=== PATIENT | female | born 1970 | race Two or more races ===

== ENCOUNTER 2022-08-07 16:28 | Inpatient (IN) | payer OTHER ==
[~2022-08-07] VITALS: Ht 157.5 cm; Wt 86.9 kg
[2022-08-07 17:27] LABS: Basophils # (auto) 0.1 10 ^3/uL (0-0.2); Eosinophils # (auto) 0.1 10 ^3/uL (0-0.8); Hematocrit 14.8 % (36.0-46.0); Monocytes # (auto) 0.4 10 ^3/uL (0-1.3); Nucleated Red Blood Cells % 0.1 %; White Blood Cell 7.6 10^3/uL (4.4-10.8)
[2022-08-07 17:29] LABS: Basophils % (auto) 1.5 % (0.0-2.0); Eosinophils % (auto) 1.2 % (0.0-7.0); Lymphocytes % (auto) 26.1 % (10.0-50.0); Mean Corpuscular Hemoglobin 15.3 pg (28.0-32.0); Mean Corpuscular Hgb Conc. 26.7 g/dL (32.0-36.0); Mean Corpuscular Volume 57.4 fL (80.0-100.0); Monocytes % (auto) 5.3 % (0.0-12.0); Neutrophils % (auto) 65.9 % (37.0-80.0); Red Blood Cells 2.58 10^6/uL (4.0-5.20)
[2022-08-07 17:40] LABS: Albumin 3.4 g/dL (3.4-5.0); Calcium 8.9 mg/dL (8.5-10.1); Potassium 4.1 mmol/L (3.5-5.1)
[2022-08-07 17:43] LABS: BUN/Creatinine Ratio 24.6 (10.0-20.0); Bilirubin, Total 0.4 mg/dL (0.2-1.0); Total Protein 6.6 g/dL (6.4-8.2)
[2022-08-07 18:15] LABS: Red Cell Distribution Width 22.1 % (11.8-14.3)
[2022-08-07 20:13] VITALS: BP 142/70
[2022-08-07 20:30] VITALS: BP 127/68
[2022-08-07] MEDS ORDERED: ONDANSETRON HCL 4 MG/2 ML VIAL IV PRN (21:15)
[2022-08-07] MEDS ORDERED: NITROGLYCERIN 0.4 MG SL TAB SL PRN (21:15)
[2022-08-07] MEDS ORDERED: MORPHINE SULFATE INJ 2 MG/ml SYRG IV PRN ×2 (21:15)
[2022-08-07 21:42] LABS: Cholesterol 122 mg/dL (< 200)
[2022-08-07 21:44] LABS: % Iron Saturation 1.5 % (15-50)
[2022-08-07 21:45] LABS: HDL Cholesterol 42 mg/dL (40-59); LDL Cholesterol 62 mg/dL (< 100); Triglycerides 150 mg/dL (< 150)
[2022-08-07] MEDS ORDERED: PANTOPRAZOLE 40 MG/10 ML VIAL INJ IV ONE (21:45)
[2022-08-07 21:52] LABS: Ferritin 2.1 ng/mL (10-322); Folate (Folic Acid) 16.8 ng/mL (5.38-24)
[2022-08-07 23:00] VITALS: BP 115/67
[2022-08-07 23:50] VITALS: BP 115/56
[2022-08-07 23:57] LABS: Urine Bacteria NONE SEEN /hpf (None Seen); Urine Blood 3+ /uL (Negative); Urine Specific Gravity 1.014 (1.001-1.035); Urine WBC 4 /hpf (0 - 5)
[2022-08-08] VITALS (33 sets, daily range): BP systolic 99–131; BP diastolic 43–72
[2022-08-08] MEDS: SODIUM CHLORIDE 0.9% 1,000 ML IV SCH ×2 (02:30→18:14)
[2022-08-08 06:20] LABS: Basophils # (auto) 0.1 10 ^3/uL (0-0.2); Eosinophils # (auto) 0.2 10 ^3/uL (0-0.8); Eosinophils % (auto) 2.9 % (0.0-7.0); Hematocrit 22.1 % (36.0-46.0); Lymphocytes % (auto) 28.3 % (10.0-50.0); Mean Corpuscular Hemoglobin 21.7 pg (28.0-32.0); Mean Corpuscular Hgb Conc. 31.5 g/dL (32.0-36.0); Mean Corpuscular Volume 68.9 fL (80.0-100.0); Monocytes # (auto) 0.6 10 ^3/uL (0-1.3); Monocytes % (auto) 8.2 % (0.0-12.0); Neutrophils # (auto) 4.2 10 ^3/uL (1.6-8.6); Neutrophils % (auto) 59.6 % (37.0-80.0); Nucleated Red Blood Cells % 0.1 %
[2022-08-08 06:23] LABS: Red Cell Distribution Width 30.9 % (11.8-14.3)
[2022-08-08 06:24] LABS: Hemoglobin 6.9 g/dL (12.2-16.2)
[2022-08-08 06:35] LABS: Calcium 8.1 mg/dL (8.5-10.1)
[2022-08-08 06:40] LABS: Albumin 3.1 g/dL (3.4-5.0); BUN/Creatinine Ratio 27.9 (10.0-20.0); Bilirubin, Total 0.6 mg/dL (0.2-1.0); Total Protein 6.2 g/dL (6.4-8.2)
[2022-08-08 08:54] LABS: INR 0.99 (0.9-1.15); Partial Thromboplastin Time 24.4 sec (24.6-33.4)
[2022-08-08] MEDS: PANTOPRAZOLE 40 MG/10 ML VIAL INJ IV SCH (09:51)
[2022-08-08] MEDS ORDERED: PROPOFOL 10 MG/ML 20 ML IV ONE (13:24)
[2022-08-08] MEDS ORDERED: DexAMETHasone SOD PHOS 10MG/1ML VIAL INJ ONE ×2 (13:25→13:32)
[2022-08-08] MEDS ORDERED: KETOROLAC TROMETH 30 MG/ML 1ML VIAL ONE (13:25)
[2022-08-08] MEDS ORDERED: GLYCOPYRROLATE 0.2 MG/ML 1ML VIAL ONE (13:25)
[2022-08-08] MEDS ORDERED: ONDANSETRON HCL 4 MG/2 ML VIAL ONE (13:25)
[2022-08-08] MEDS ORDERED: fentaNYL CITRATE 100 MCG/2 ML VL ONE (13:26)
[2022-08-08] MEDS ORDERED: KETAMINE HCL 10 ML ONE (13:26)
[2022-08-08] MEDS ORDERED: EPINEPHrine HCL 1 MG/1 ML AMP ONE (13:30)
[2022-08-08 13:33] LABS: Hematocrit 25.4 % (36.0-46.0)
[2022-08-08] MEDS ORDERED: LIDOCAINE 2% (LOCAL ANESTH.) PF 5ml SDV ONE (13:48)
[2022-08-08] MEDS ORDERED: SUGAMMADEX 200mg/2ml Vial (100MG/ML) IV ONE (13:52)
[2022-08-08] MEDS ORDERED: ceFAZolin 1GM/50ML 0 ML IV ONE (13:59)
[2022-08-08] MEDS ORDERED: CLINDAMYCIN 600MG IV 50 ML IV ONE (14:00)
[2022-08-08] MEDS ORDERED: BUPIVACAINE W/ EPINEPH 0.25% INJ 50ML MDV ONE (14:24)
[2022-08-08] MEDS ORDERED: LIDOCAINE HCL (LOCAL ANESTH.) 0.5 % 50ML MDV IJ ONE (14:24)
[2022-08-08] MEDS ORDERED: CLINDAMYCIN 900MG IV 50 ML IV ONE (14:30)
[2022-08-08] MEDS ORDERED: MORPHINE SULFATE 4 MG/ML SYR/VIAL IV PRN (14:30)
[2022-08-08] MEDS ORDERED: SODIUM CHLORIDE LOCK 10 ML ONE (14:45)
[2022-08-08] MEDS ORDERED: PHENYLEPHRINE HCL 10 MG/ML VL ONE (14:45)
[2022-08-08] MEDS ORDERED: GELATIN 1 SPONGE SIZE 100 TOP ONE (15:24)
[2022-08-08] MEDS ORDERED: hydrALAZINE HCL 20 MG/ML VL IV PRN (16:15)
[2022-08-08] MEDS ORDERED: ePHEDrine SULFATE 50 MG/ML AMP IV PRN (16:15)
[2022-08-08] MEDS ORDERED: FLUMAZENIL 0.1 MG/ML INJ 10ML MDV IV PRN (16:15)
[2022-08-08] MEDS ORDERED: LABETALOL HCL 5 MG/ML 4ML SYRINGE IV PRN (16:15)
[2022-08-08] MEDS ORDERED: fentaNYL CITRATE 100 MCG/2 ML VL IV PRN (16:15)
[2022-08-08] MEDS ORDERED: NALOXONE HCL 0.4 MG/ML VIAL IV PRN (16:15)
[2022-08-08] MEDS ORDERED: HYDROmorphone HCL 2 MG/ML VL/or syr IV PRN (16:15)
[2022-08-08] MEDS ORDERED: ONDANSETRON HCL 4 MG/2 ML VIAL IV PRN (16:15)
[2022-08-08] MEDS ORDERED: oxyCODONE HCL 5MG TAB PO ONE (16:37)
[2022-08-08] MEDS ORDERED: HYDROmorphone HCL 2 MG/ML VL/or syr IV ONE (16:37)
[2022-08-08] MEDS: oxyCODONE HCL 5MG TAB PO PRN (20:36)
[2022-08-08 22:08] LABS: Hematocrit 24.9 % (36.0-46.0); Hemoglobin 7.6 g/dL (12.2-16.2)
[2022-08-08] MEDS: ACETAMINOPHEN 500 MG TAB PO PRN (23:59)
[2022-08-09] VITALS (41 sets, daily range): BP systolic 100–141; BP diastolic 49–69
[2022-08-09] MEDS: SODIUM CHLORIDE 0.9% 1,000 ML IV SCH ×3 (02:00→22:36)
[2022-08-09] MEDS: oxyCODONE HCL 5MG TAB PO PRN (02:31)
[2022-08-09 05:41] LABS: Basophils # (auto) 0 10 ^3/uL (0-0.2); Basophils % (auto) 0.2 % (0.0-2.0); Eosinophils # (auto) 0 10 ^3/uL (0-0.8)
[2022-08-09 05:43] LABS: Hemoglobin 7.1 g/dL (12.2-16.2); Lymphocytes # (auto) 0.6 10 ^3/uL (0.4-5.4); Lymphocytes % (auto) 4.5 % (10.0-50.0); Mean Corpuscular Hemoglobin 22.2 pg (28.0-32.0); Mean Corpuscular Volume 71.6 fL (80.0-100.0); Monocytes # (auto) 0.8 10 ^3/uL (0-1.3); Monocytes % (auto) 5.9 % (0.0-12.0); Neutrophils # (auto) 11.8 10 ^3/uL (1.6-8.6); Neutrophils % (auto) 89.4 % (37.0-80.0); Nucleated Red Blood Cells % 0.1 %; Red Blood Cells 3.22 10^6/uL (4.0-5.20); White Blood Cell 13.2 10^3/uL (4.4-10.8)
[2022-08-09 05:47] LABS: Red Cell Distribution Width 29.3 % (11.8-14.3)
[2022-08-09 06:03] LABS: Albumin 2.9 g/dL (3.4-5.0); Calcium 8.2 mg/dL (8.5-10.1); Potassium 3.9 mmol/L (3.5-5.1)
[2022-08-09 06:06] LABS: BUN/Creatinine Ratio 26.8 (10.0-20.0); Bilirubin, Total 0.7 mg/dL (0.2-1.0); Total Protein 5.7 g/dL (6.4-8.2)
[2022-08-09] MEDS: PANTOPRAZOLE 40 MG/10 ML VIAL INJ IV SCH (08:53)
[2022-08-09] MEDS: SIMETHICONE 80 MG CHEWABLE TABLET PO PRN ×2 (12:16→17:00)
[2022-08-09] MEDS: ACETAMINOPHEN 500 MG TAB PO PRN ×2 (12:17→21:56)
[2022-08-09] MEDS: ONDANSETRON HCL 4 MG/2 ML VIAL IV PRN ×3 (12:32→21:56)
[2022-08-09] MEDS ORDERED: DICYCLOMINE HCL (10MG/ML) 2 ML AMPULE IM PRN (18:45)
[2022-08-10] VITALS: BP 136/64
[2022-08-10] MEDS: ONDANSETRON HCL 4 MG/2 ML VIAL IV PRN ×2 (03:14→07:27)
[2022-08-10 04:30] VITALS: BP 133/64
[2022-08-10 06:05] LABS: Eosinophils # (auto) 0 10 ^3/uL (0-0.8)
[2022-08-10 06:07] LABS: Basophils # (auto) 0.1 10 ^3/uL (0-0.2); Basophils % (auto) 0.5 % (0.0-2.0); Eosinophils % (auto) 0.1 % (0.0-7.0); Hemoglobin 8.7 g/dL (12.2-16.2); Lymphocytes # (auto) 0.6 10 ^3/uL (0.4-5.4); Lymphocytes % (auto) 4.6 % (10.0-50.0); Mean Corpuscular Hemoglobin 23.2 pg (28.0-32.0); Mean Corpuscular Hgb Conc. 32.1 g/dL (32.0-36.0); Mean Corpuscular Volume 72.4 fL (80.0-100.0); Monocytes # (auto) 0.8 10 ^3/uL (0-1.3); Monocytes % (auto) 5.8 % (0.0-12.0); Nucleated Red Blood Cells % 0.2 %; Red Blood Cells 3.74 10^6/uL (4.0-5.20); White Blood Cell 13.5 10^3/uL (4.4-10.8)
[2022-08-10 06:14] LABS: Red Cell Distribution Width 28.5 % (11.8-14.3)
[2022-08-10 06:15] LABS: Potassium 3.4 mmol/L (3.5-5.1)
[2022-08-10 06:23] LABS: Albumin 3.1 g/dL (3.4-5.0); BUN/Creatinine Ratio 21.6 (10.0-20.0); Bilirubin, Total 0.8 mg/dL (0.2-1.0); Calcium 8.5 mg/dL (8.5-10.1); Total Protein 6.4 g/dL (6.4-8.2)
[2022-08-10 08:00] VITALS: BP 122/68
[2022-08-10] MEDS ORDERED: POTASSIUM CHL 20 Meq TABLET PO ONE (08:15)
[2022-08-10] MEDS: PANTOPRAZOLE 40 MG/10 ML VIAL INJ IV SCH ×2 (08:57→22:34)
[2022-08-10] MEDS: ACETAMINOPHEN 500 MG TAB PO PRN ×2 (12:40→18:40)
[2022-08-10 13:00] VITALS: BP 140/68
[2022-08-10 17:00] VITALS: BP 141/79
[2022-08-10 22:00] VITALS: BP 125/63
[2022-08-11] MEDS: ACETAMINOPHEN 500 MG TAB PO PRN ×3 (03:53→17:17)
[2022-08-11 05:00] VITALS: BP 112/58
[2022-08-11 06:06] LABS: Basophils # (auto) 0.1 10 ^3/uL (0-0.2); Basophils % (auto) 1.3 % (0.0-2.0); Eosinophils # (auto) 0.2 10 ^3/uL (0-0.8); Hemoglobin 8.5 g/dL (12.2-16.2); Lymphocytes # (auto) 1.1 10 ^3/uL (0.4-5.4); Mean Corpuscular Hemoglobin 22.9 pg (28.0-32.0); Monocytes # (auto) 0.7 10 ^3/uL (0-1.3); Neutrophils # (auto) 8.1 10 ^3/uL (1.6-8.6); White Blood Cell 10.2 10^3/uL (4.4-10.8)
[2022-08-11 06:09] LABS: Eosinophils % (auto) 1.8 % (0.0-7.0); Hematocrit 26.4 % (36.0-46.0); Mean Corpuscular Volume 71.4 fL (80.0-100.0); Monocytes % (auto) 7.2 % (0.0-12.0); Neutrophils % (auto) 78.7 % (37.0-80.0); Nucleated Red Blood Cells % 0.1 %; Red Blood Cells 3.69 10^6/uL (4.0-5.20)
[2022-08-11 06:24] LABS: BUN/Creatinine Ratio 16.7 (10.0-20.0); Calcium 8.2 mg/dL (8.5-10.1); Potassium 3.4 mmol/L (3.5-5.1)
[2022-08-11 06:35] LABS: Red Cell Distribution Width 28.4 % (11.8-14.3)
[2022-08-11 09:00] VITALS: BP 128/65
[2022-08-11] MEDS: PANTOPRAZOLE 40 MG/10 ML VIAL INJ IV SCH (09:54)
[2022-08-11 13:00] VITALS: BP 112/59
== END 2022-08-11 17:50 | disposition home or self-care (01) | DRG 742 ==
LOC: ER 16:28 → TELE 21:12 → DOU IN ICU 08-08 18:14 → TELE-EAST 08-10 12:15 → EAST 08-11 00:57
PROVIDERS: ADMIT Registered Nurse; ATTEND Family Medicine
PROC: 30233N1 Transfusion of Nonautologous Red Blood Cells into Peripheral Vein, Percutaneous Approach (ICD-10-PCS; 2022-08-07)
PROC: 0UB70ZZ Excision of Bilateral Fallopian Tubes, Open Approach (ICD-10-PCS; 2022-08-08)
PROC: 0UT90ZL Resection of Uterus, Supracervical, Open Approach (ICD-10-PCS; principal; 2022-08-08 14:15)
PROC: 30233K1 Transfusion of Nonautologous Frozen Plasma into Peripheral Vein, Percutaneous Approach (ICD-10-PCS; 2022-08-09)
PROC: 5A1935Z Respiratory Ventilation, Less than 24 Consecutive Hours (ICD-10-PCS; 2022-08-09)
DX: D25.9 Leiomyoma of uterus, unspecified (principal); D62 Acute posthemorrhagic anemia; E78.5 Hyperlipidemia, unspecified; N93.9 Abnormal uterine and vaginal bleeding, unspecified; E66.01 Morbid (severe) obesity due to excess calories; Z83.3 Family history of diabetes mellitus; Z90.49 Acquired absence of other specified parts of digestive tract; Z68.35 Body mass index [BMI] 35.0-35.9, adult; Z88.0 Allergy status to penicillin
CPT/HCPCS: 36415; 36430; 76856; 80048; 80053; 80061; 81001; 82306; 82607; 82728; 82746; 83036; 83540; 83550; 83615; 84443; 85014; 85018; 85025; 85045; 85384; 85610; 85730; 86850; 86900; 86901; 86920; 87081; 96374; 96375; 97110; 97116; 97163; 97530; C9113; G0378; J0171; J0690; J1100; J1885; J2001; J2405; J2704; J3490